=== PATIENT | male | born 1950 | race Caucasian/White ===

== ENCOUNTER 2019-04-10 14:50 | Emergency (ER) | payer SELFPAY ==
--- NOTE | 2019-04-10 14:54 | ER Report ---
History and Physical Time Seen By MD: 14:53 HPI/CHRISTI CHIEF COMPLAINT: Shortness of breath HISTORY OF PRESENT ILLNESS: Patient is a 69-year-old male who presents the ED with complaint of shortness of breath. He states that he has noticed this for the past 2-3 days. He feels like it is getting worse. He is currently traveling from [place]. He states that he was visiting his son in [facility] in [place], [place] and and is on his way back to [place] now. He has been many hours in the car at this point. He states that for the past week he has noted some intermittent bilateral leg pain and swelling. He has multiple heart and lung issues including CHF, COPD, asthma. He states that he hasn't multiple headache inhalers and prednisone. He is also on Lasix. He states that he has been taking all these but he continues to feel short of breath. He states he is not normally on oxygen. He states he has noted a mild cough as well and was concerned that maybe he was getting pneumonia. He denies any chest pain. REVIEW OF SYSTEMS: Constitutional: No fever, no chills. Eyes: No discharge. ENT: No sore throat. Cardiovascular: See history of present illness. Respiratory: See history of present illness. Gastrointestinal: No abdominal pain, no vomiting. Genitourinary: No hematuria. Musculoskeletal: No back pain. Skin: No rashes. Neurological: No headache. Allergies: Coded Allergies: No Known Drug Allergies (Unverified , 04/10/19) Reviewed Nurses Notes: Yes Old Medical Records Reviewed: Yes Constitutional Vital Sign - Last 24 Hours 04/10/19 04/10/19 04/10/19 04/10/19 14:59 15:03 15:03 15:10 Temp 98.8 Pulse 97 96 Resp 24 18 B/P (MAP) 102/73 Pulse Ox 83 94 93 O2 Delivery Room Air Nasal Cannula Nasal Cannula O2 Flow Rate 2.0 1.0 04/10/19 04/10/19 04/10/19 04/10/19 15:10 15:20 15:25 15:36 Pulse 90 94 Resp 18 21 B/P (MAP) 91/56 (68) 89/49 (62) Pulse Ox 86 04/10/19 04/10/19 04/10/19 04/10/19 15:50 16:20 16:28 16:30 Pulse 101 90 Resp 14 10 B/P (MAP) 86/57 (67) 85/55 (65) Pulse Ox 91 91 04/10/19 17:00 Pulse 83 Resp 20 B/P (MAP) 98/74 (82) Pulse Ox 94 Physical Exam General Appearance: The patient is alert, has no immediate need for airway protection and no signs of toxicity. Patient appears to be no acute distress. Eyes: Pupils equal and round no pallor or injection. ENT, Mouth: Mucous membranes are moist. Respiratory: Bilateral wheezing is present. Cardiovascular: Regular rate and rhythm. Gastrointestinal: Abdomen is soft and non tender, no masses, bowel sounds normal. Neurological: Cranial nerves II through XII intact. Skin: Warm and dry, no rashes. Musculoskeletal: Neck is supple non tender. Extremities are nontender, nonswollen and have full range of motion. DIFFERENTIAL DIAGNOSIS: After history and physical exam differential diagnosis was considered for chest pain including but not limited to myocardial ischemia, pericarditis pulmonary embolus, chest wall pain, pleural inflammation and pulmonary infectious causes. Medical Decision Making Data Points Result Diagram: 04/10/19 1508 04/10/19 1508 Laboratory Hematology Test 04/10/19 15:08 04/10/19 15:13 Red Blood Count 4.72 M/uL (4.00-5.60) Mean Corpuscular Volume 88.0 fL (80.0-96.0) Mean Corpuscular Hemoglobin 29.4 pg (26.0-33.0) Mean Corpuscular Hemoglobin Concent 33.5 g/dL (32.0-36.0) Red Cell Distribution Width 14.4 % (11.5-14.5) Mean Platelet Volume 7.7 fL (7.2-11.1) Neutrophils (%) (Auto) 85.6 % (39.4-72.5) Lymphocytes (%) (Auto) 6.8 % (17.6-49.6) Monocytes (%) (Auto) 6.9 % (4.1-12.4) Eosinophils (%) (Auto) 0.4 % (0.4-6.7) Basophils (%) (Auto) 0.3 % (0.3-1.4) Nucleated RBC Relative Count (auto) 0.3 /100WBC Neutrophils # (Auto) 13.8 K/uL (2.0-7.4) Lymphocytes # (Auto) 1.1 K/uL (1.3-3.6) Monocytes # (Auto) 1.1 K/uL (0.3-1.0) Eosinophils # (Auto) 0.1 K/uL (0.0-0.5) Basophils # (Auto) 0.0 K/uL (0.0-0.1) Nucleated RBC Absolute Count (auto) 0.05 K/uL D-Dimer Quantitative (PE/DVT) 1.40 ug/ml (0-0.50) Sodium Level 129 mmol/L (137-145) Potassium Level 4.5 mmol/L (3.5-5.0) Chloride Level 93 mmol/L (98-107) Carbon Dioxide Level 26 mmol/L (22-30) Blood Urea Nitrogen 22 mg/dl (9-21) Creatinine 1.50 mg/dl (0.66-1.25) Glomerular Filtration Rate Calc 46.1 Random Glucose 106 mg/dl (75-110) Calcium Level 8.8 mg/dl (8.4-10.2) Total Bilirubin 0.7 mg/dl (0.2-1.3) Aspartate Amino Transf (AST/SGOT) 27 U/L (0-35) Alanine Aminotransferase (ALT/SGPT) 35 U/L (0-56) Alkaline Phosphatase 91 U/L (0-126) Troponin I 0.788 ng/ml B-Type Natriuretic Peptide 293 pg/ml (0-100) Total Protein 7.1 g/dl (6.3-8.2) Albumin 4.4 g/dl (3.5-5.0) Prothrombin Time 13.1 seconds (12.0-14.4) Prothromb Time International Ratio 0.99 Activated Partial Thromboplast Time 33 seconds (23-35) Chemistry Test 04/10/19 15:08 04/10/19 15:13 White Blood Count 16.2 k/uL (4.5-11.0) Red Blood Count 4.72 M/uL (4.00-5.60) Hemoglobin 13.9 g/dL (14.0-18.0) Hematocrit 41.5 % (42.0-52.0) Mean Corpuscular Volume 88.0 fL (80.0-96.0) Mean Corpuscular Hemoglobin 29.4 pg (26.0-33.0) Mean Corpuscular Hemoglobin Concent 33.5 g/dL (32.0-36.0) Red Cell Distribution Width 14.4 % (11.5-14.5) Platelet Count 303 K/uL (150-450) Mean Platelet Volume 7.7 fL (7.2-11.1) Neutrophils (%) (Auto) 85.6 % (39.4-72.5) Lymphocytes (%) (Auto) 6.8 % (17.6-49.6) Monocytes (%) (Auto) 6.9 % (4.1-12.4) Eosinophils (%) (Auto) 0.4 % (0.4-6.7) Basophils (%) (Auto) 0.3 % (0.3-1.4) Nucleated RBC Relative Count (auto) 0.3 /100WBC Neutrophils # (Auto) 13.8 K/uL (2.0-7.4) Lymphocytes # (Auto) 1.1 K/uL (1.3-3.6) Monocytes # (Auto) 1.1 K/uL (0.3-1.0) Eosinophils # (Auto) 0.1 K/uL (0.0-0.5) Basophils # (Auto) 0.0 K/uL (0.0-0.1) Nucleated RBC Absolute Count (auto) 0.05 K/uL D-Dimer Quantitative (PE/DVT) 1.40 ug/ml (0-0.50) Glomerular Filtration Rate Calc 46.1 Calcium Level 8.8 mg/dl (8.4-10.2) Total Bilirubin 0.7 mg/dl (0.2-1.3) Aspartate Amino Transf (AST/SGOT) 27 U/L (0-35) Alanine Aminotransferase (ALT/SGPT) 35 U/L (0-56) Alkaline Phosphatase 91 U/L (0-126) Troponin I 0.788 ng/ml B-Type Natriuretic Peptide 293 pg/ml (0-100) Total Protein 7.1 g/dl (6.3-8.2) Albumin 4.4 g/dl (3.5-5.0) Prothrombin Time 13.1 seconds (12.0-14.4) Prothromb Time International Ratio 0.99 Activated Partial Thromboplast Time 33 seconds (23-35) Coagulation Test 04/10/19 15:08 04/10/19 15:13 D-Dimer Quantitative (PE/DVT) 1.40 ug/ml Prothrombin Time 13.1 seconds Prothromb Time International Ratio 0.99 Activated Partial Thromboplast Time 33 seconds EKG/Imaging EKG Interpretation 12 lead EK Rhythm: Normal sinus rhythm with incomplete left bundle-branch block. ST segments: No acute ST changes identified. 12 lead EK Rhythm: Normal sinus rhythm with left bundle-branch block ST segments: No acute ST changes identified. Do not see any [place] criteria being met. Imaging CTA PE Protocol: IMPRESSION: 1. No pulmonary embolism. 2. Mild airway thickening with a small amount of debris/secretions in the left lower lung airways. Correlation with any evidence of a bronchitis or aspiration is recommended. 3. Advanced coronary atherosclerosis. 4. Mild emphysema. Report Dictated By: Dylon Li MD at 04/10/2019 4:49 PM Report E-Signed By: Dylon Li MD at 04/10/2019 4:57 PM ED Course/Re-evaluation ED Course Will obtain labs and imaging. Patient given DuoNeb and IV Solu-Medrol 125 mg. 04/10/2019 5:54:33 pm - discussed all labs and imaging with patient. IV heparin drip was ordered. His blood pressures are starting to improve. Ultrasound results are not available but no DVT noted by senior telecommunications technician but he does have significant peripheral artery disease bilaterally. Patient states that he did have a history of a clot in his abdomen after hernia surgery. States that he was on some Lovenox for this. He is no longer on any blood thinner. Discussed patient with [facility] Dr. Avila, Cardiology and Dr. Sarkar, hospitalist, who do except patient under their care. Dr. Avila does want Atorvastatin ordered. Decision to Disposition Date: Apr 10, 2019 Decision to Disposition Time: 17:54 Depart Departure Latest Vital Signs Vital Signs Date Time Temp Pulse Resp B/P (MAP) Pulse Ox O2 Delivery O2 Flow Rate FiO2 04/10/19 17:00 83 20 98/74 (82) 94 04/10/19 15:10 Nasal Cannula 1.0 04/10/19 14:59 98.8 Impression: Primary Impression: Non-STEMI (non-ST elevated myocardial infarction) Additional Impressions: Peripheral artery disease Shortness of breath Elevated serum creatinine Condition: Improved Disposition: XFER TO [facility] MD Consult Note: Dr. Avila, [facility] Cardiology Dr. Sarkar, Hospitalist, [facility] Problem Qualifiers NED AUGUSTINE PA-C Apr 10, 2019 14:54
[2019-04-10] MEDS ORDERED: methylPREDNIS SUCC 125 MG/2ML IVP ONE (15:05)
[2019-04-10] MEDS ORDERED: ALBUTEROL/IPRATROPIUM 3 ML NEB ONE (15:06)
--- NOTE | 2019-04-10 15:17 | EKG ---
FACILITY: [facility] [place] PATIENT NAME: ANNA CAPPS : [id number] MR: [id number] V: [id number] EXAM DATE: ORDERING PHYSICIAN: NED AUGUSTINE TECHNOLOGIST: Test Reason : Blood Pressure : / mmHG Vent. Rate : 096 BPM Atrial Rate : 096 BPM P-R Int : 116 ms QRS Dur : 146 ms QT Int : 386 ms P-R-T Axes : 075 081 -86 degrees QTc Int : 487 ms Normal sinus rhythm Left bundle branch block Abnormal ECG No previous ECGs available Confirmed by Daniel Cagle ([id number]) on 04/11/2019 7:48:03 AM Referred By: Confirmed By:Daniel Peres
[2019-04-10 15:28] LABS: PLATELET COUNT, AUTOMATED 303 K/uL (150-450)
[2019-04-10] MEDS ORDERED: NS(*) 0.9% 500 ML BAG 500 ML IV ONE (15:40)
[2019-04-10] MEDS ORDERED: ASPIRIN 81 MG CHEW PO ONE (15:50)
[2019-04-10] MEDS ORDERED: NS(*) 0.9% 50 ML BAG 50 ML ONE (16:10)
[2019-04-10] MEDS ORDERED: IOPAMIDOL 76% 100 ML INFUS BTL 100 ML ONE (16:10)
[2019-04-10 16:52] LABS: INR 0.99
--- NOTE | 2019-04-10 17:02 | RADIOLOGY IMAGING REPORT ---
FACILITY: [facility] PATIENT NAME: Alvin Sarkar : 1950 MR: [id number] V: [id number] EXAM DATE: ORDERING PHYSICIAN: NED AUGUSTINE TECHNOLOGIST: Location: [facility] [place] Patient: Alvin Sarkar : 1950 Visit/Account:[id number] Date of Sevice: 04/10/2019 EXAMINATION: CT CHEST PULMONARY ANGIOGRAM COMPARISON: None available HISTORY: SOB, elevated d-dimer PROCEDURE: Pulmonary arterial phase imaging of the chest with 35 mL intravenous Isovue 370. Reconstru ction of the source data set includes multiplanar 2D in the sagittal and coronal planes, and 3D recon structed coronal slab MIP series. One of the following dose optimization techniques was utilized in the performance of this exam: Autom ated exposure control; adjustment of the mA and/or kV according to the patient's size; or use of an i terative reconstruction technique. Specific details can be referenced in the facility's radiology C T exam operational policy. FINDINGS: Pulmonary vasculature: There is good contrast opacification of the pulmonary arterial system. No pul monary embolism. Main pulmonary artery size is normal. Cardiac and mediastinum: Advanced coronary atherosclerosis. Mild left ventricular dilation. No perica rdial effusion. Thoracic aorta mild atherosclerosis. No thoracic aortic aneurysm. Lymph nodes: Negative. Lungs and pleura: Apical predominant mild emphysema. No consolidation or nodule. No pneumothorax, mark anthony ma, or effusion. Airways: Mild airway thickening with a small amount of debris or secretions in the left lower lung ai rways. No central airway occlusion. Visualized upper abdomen: No acute findings. Osseous structures: Mild degenerative change. No acute findings. IMPRESSION: 1. No pulmonary embolism. 2. Mild airway thickening with a small amount of debris/secretions in the left lower lung airways. Co rrelation with any evidence of a bronchitis or aspiration is recommended. 3. Advanced coronary atherosclerosis. 4. Mild emphysema. Report Dictated By: Dylon Li MD at 04/10/2019 4:49 PM Report E-Signed By: Dylon Li MD at 04/10/2019 4:57 PM WSN:[id number]
[2019-04-10] MEDS ORDERED: HEPARIN SOD/D5W 25000/250 ML 250 ML IV ONE ×2 (17:17→17:25)
[2019-04-10] MEDS ORDERED: HEPARIN (PORC) 5000 UN/ML VIAL IVP ONE (17:20)
[2019-04-10] MEDS ORDERED: NS(*) 0.9% 1000 ML BAG 1,000 ML IV ONE (17:40)
[2019-04-10] MEDS ORDERED: ATORVASTATIN 40 MG TAB PO ONE (17:40)
--- NOTE | 2019-04-10 18:06 | RADIOLOGY IMAGING REPORT ---
FACILITY: [facility] PATIENT NAME: Alvin Sarkar : 1950 MR: [id number] V: [id number] EXAM DATE: ORDERING PHYSICIAN: NED AUGUSTINE TECHNOLOGIST: Location: [facility] Patient: Alvin Sarkar : 1950 Visit/Account:[id number] Date of Sevice: 04/10/2019 EXAMINATION: Bilateral lower extremity duplex venous ultrasound COMPARISON: None Available HISTORY: Bilateral leg pain and swelling. Elevated d-dimer. FINDINGS: Standard bilateral lower extremity Doppler ultrasound with color flow and spectral analysis is performed. The left common femoral, femoral, and popliteal veins are patent. The visualized calf vessels are unr emarkable. The right common femoral vein, femoral vein, popliteal vein, and visualized calf vessels are patent. In the region of the distal right superficial femoral artery there is a hypoechoic dilated 2.1 cm tub ular structure concerning foreign aneurysm. No popliteal fluid collection. IMPRESSION: 1. No left or right lower extremity deep venous thrombus. 2. 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 Consider further characterizati on by CTA as clinically indicated. Report Dictated By: Dylon Li MD at 04/10/2019 5:47 PM Report E-Signed By: Dylon Li MD at 04/10/2019 6:01 PM WSN:[id number]
[2019-04-10 19:00] VITALS: BP 98/68
--- NOTE | 2019-04-10 19:32 | EKG ---
FACILITY: [facility] [place] PATIENT NAME: ANNA CAPPS : [id number] MR: [id number] V: [id number] EXAM DATE: ORDERING PHYSICIAN: NED AUGUSTINE TECHNOLOGIST: GERA Craig Reason : REPEAT Blood Pressure : / mmHG Vent. Rate : 087 BPM Atrial Rate : 087 BPM P-R Int : 142 ms QRS Dur : 150 ms QT Int : 418 ms P-R-T Axes : 073 061 260 degrees QTc Int : 502 ms Normal sinus rhythm Left bundle branch block When compared with ECG of 10-APR-2019 14:59, No significant change was found Confirmed by Daniel Cagle ([id number]) on 04/11/2019 7:50:44 AM Referred By: Confirmed By:Daniel Peres
== END 2019-04-10 19:35 | disposition home or self-care (01) ==
LOC: ER 15:14
DX: I21.4 Non-ST elevation (NSTEMI) myocardial infarction (principal); I77.9 Disorder of arteries and arterioles, unspecified; R79.89 Other specified abnormal findings of blood chemistry
CPT/HCPCS: 71275; 83880; 84484; 85025; 85379; 85610; 85730; 93005; 93970; 94640; 94667; 96361; 96365; 96366; 96375; 99285; J1644; J2930; J7030; J7040; J7050; J7620; Q9967; 82040; 82247; 82310; 82374; 82435; 82565; 82947; 84075; 84132; 84155; 84295; 84450; 84460; 84520

== ENCOUNTER → 2019-04-10 | Outpatient (CLI) | payer SELFPAY | LOC: AMB 18:51 | PROVIDERS: ATTEND Nurse Practitioner | DX: I21.4 Non-ST elevation (NSTEMI) myocardial infarction (principal) | CPT/HCPCS: A0425; A0426 ==